=== PATIENT | female | born 2000 | race Caucasian/White ===

== ENCOUNTER 2023-06-03 18:39 | Emergency (ER) | payer OTHER, BC ==
[~2023-06-03] VITALS: Ht 162.6 cm; Wt 109.4 kg
[2023-06-03] MEDS: BOOSTRIX VACCINE (TETANUS/DIPHTH/ACEL. PERTUSSIS) 0.5ML SYR IM ONE (19:32)
[2023-06-03 19:50] LABS: WHITE BLOOD COUNT 8.7 10^3/uL (4.0-10.0)
[2023-06-03 19:51] LABS: BASO % 0.5 % (0.0-1.0); EOS # 0.2 10^3/uL (0.0-0.5); EOS % 2.5 % (0.0-3.0); HEMATOCRIT 42.4 % (36.0-47.0); HEMOGLOBIN 14.4 g/dl (12.0-15.5); LYMPH % 22.4 % (24.0-44.0); MEAN CORPUSCULAR HEMOGLOBIN 30.1 pg (27.0-33.0); MEAN CORPUSCULAR VOLUME 88.7 fl (80.0-96.0); MONO # 0.5 10^3/uL (0.0-0.8); MONO % 5.6 % (2.0-8.0); NEUTROPHILS % 68.7 % (36.0-66.0); PLATELET COUNT, AUTOMATED 292 10^3/uL (150-450); RED BLOOD COUNT 4.78 10^6/uL (4.00-5.40)
[2023-06-03 20:05] LABS: ALKALINE PHOSPHATASE 78 U/L (46-116); ALT/SGPT 22 U/L (7.0-40); AST/SGOT 18 U/L (<34); BILIRUBIN,TOTAL 0.2 MG/DL (0.3-1.2); BLOOD UREA NITROGEN 9 MG/DL (9-23); CALCIUM LEVEL 9.1 MG/DL (8.5-10.1); CARBON DIOXIDE LEVEL 23 MMOL/L (20-31); CHLORIDE LEVEL 108 MMOL/L (98-107); CREATININE FOR GFR 0.55 MG/DL (0.55-1.30); GLOMERULAR FILTRATION RATE > 60.0 (>60); GLUCOSE, FASTING 90 MG/DL (60-100); POTASSIUM SERUM 3.8 MMOL/L (3.5-5.1); SODIUM LEVEL 140 MMOL/L (136-145); TOTAL PROTEIN 7.2 G/DL (5.7-8.2)
[2023-06-03 20:07] LABS: HCG, SERUM QUALITATIVE NEGATIVE (NEGATIVE)
[2023-06-03 20:10] LABS: HEPATITIS B SURFACE ANTIBODY NEGATIVE (POSITIVE)
[2023-06-03] MEDS ORDERED: METR-265 PO (20:24)
[2023-06-03] MEDS ORDERED: CIPR-249 PO (20:24)
[2023-06-03 20:34] LABS: HIV 1&2 SCREEN NEGATIVE (NEGATIVE)
[2023-06-03] MEDS: CIPROFLOXACIN 500MG TABLET PO ONE (20:34)
[2023-06-03] MEDS: metroNIDAZOLE (FLAGYL) 500MG TABLET PO ONE (20:34)
[2023-06-03] MEDS: HEPATITIS B VACCINE 10 MCG/0.5 ML SYRINGE (FOR ALL OTHER PTS) IM.IMMUN ONE (20:35)
[2023-06-03 20:42] VITALS: BP 129/85; TEMP 97.8; O2SAT 99
[2023-06-03 20:43] LABS: HEPATITIS C VIRUS ABY INDEX 0.02 INDEX (<0.8)
== END 2023-06-03 20:43 | disposition home or self-care (01) ==
LOC: M ED 18:39
DX: S51.852A Open bite of left forearm, initial encounter (principal); Y92.9 Unspecified place or not applicable; Y93.9 Activity, unspecified; Y99.0 Civilian activity done for income or pay; W50.3XXA Accidental bite by another person, initial encounter; F17.290 Nicotine dependence, other tobacco product, uncomplicated; Z88.0 Allergy status to penicillin; Z79.2 Long term (current) use of antibiotics; Z79.899 Other long term (current) drug therapy; Z23 Encounter for immunization